=== PATIENT | male | born 1950 | race Caucasian/White ===

== ENCOUNTER 2022-08-16 15:25 | Outpatient (RCR) | payer MEDICARE, SELFPAY | END 2022-09-11 23:59 | disposition home or self-care (01) | LOC: CR 15:25 | PROVIDERS: PCP Nurse Practitioner; Visit Provider Internal Medicine Cardiovascular Disease | DX: Z95.1 Presence of aortocoronary bypass graft (principal) ==

== ENCOUNTER 2022-09-09 10:48 | Outpatient (RCR) | payer MEDICARE, BC, SELFPAY | END 2022-09-11 23:59 | disposition home or self-care (01) | LOC: CR 10:48 | PROVIDERS: PCP Nurse Practitioner; Visit Provider Internal Medicine Cardiovascular Disease | DX: Z95.1 Presence of aortocoronary bypass graft (principal); Z51.89 Encounter for other specified aftercare | CPT/HCPCS: S9472 ==

== ENCOUNTER 2022-10-12 10:22 | Outpatient (RCR) | payer MEDICARE, BC, SELFPAY | END 2022-10-12 23:59 | disposition home or self-care (01) | LOC: CR 10:22 | PROVIDERS: PCP Nurse Practitioner; Visit Provider Internal Medicine Cardiovascular Disease | DX: Z95.1 Presence of aortocoronary bypass graft (principal); Z51.89 Encounter for other specified aftercare | CPT/HCPCS: S9472 ==

== ENCOUNTER 2022-11-07 10:02 | Outpatient (RCR) | payer MEDICARE, BC, SELFPAY | END 2022-11-11 23:59 | disposition home or self-care (01) | LOC: CR 10:02 | PROVIDERS: PCP Nurse Practitioner; Visit Provider Internal Medicine Cardiovascular Disease | DX: Z95.1 Presence of aortocoronary bypass graft (principal); Z51.89 Encounter for other specified aftercare | CPT/HCPCS: S9472 ==

== ENCOUNTER 2022-12-12 10:00 | Outpatient (RCR) | payer MEDICARE, BC, SELFPAY | END 2022-12-12 23:59 | disposition home or self-care (01) | LOC: CR 10:00 | PROVIDERS: PCP Nurse Practitioner; Visit Provider Internal Medicine Cardiovascular Disease | DX: I25.2 Old myocardial infarction (principal); Z95.1 Presence of aortocoronary bypass graft; Z51.89 Encounter for other specified aftercare | CPT/HCPCS: S9472 ==

== ENCOUNTER 2022-12-19 10:00 | Outpatient (RCR) | payer MEDICARE, BC, SELFPAY | END 2023-01-12 23:59 | disposition home or self-care (01) | LOC: CR 10:00 | PROVIDERS: PCP Nurse Practitioner; Visit Provider Internal Medicine Cardiovascular Disease | DX: Z95.1 Presence of aortocoronary bypass graft (principal); Z51.89 Encounter for other specified aftercare | CPT/HCPCS: S9472 ==